=== PATIENT | female | born 1940 | race Caucasian/White ===

== ENCOUNTER → 2016-07-03 | Outpatient (CLI) | payer MEDICARE ==
[~2016-07-03] MED LIST: ASPIR-LOW81 MG PO; CIPRO 250MG TA250 MG PO; CRESTOR10 MG PO; FLAGYL250 MG PO; IMODIUM 2MG. CAP2 MG OR; LEVOTHYROXIN0.075 MG PO; LEVOTHYROXINE0.05 MG PO; LOVASTATIN20 MG PO; METFORMIN500 MG PO; METOPROLOL25 MG PO; PHENERGAN 12.12.5 M1 PO; TIMOPTIC 0.5% OP5 M1 OP; XALATAN 0.2.5 ML/BOT OP
--- NOTE | 2016-07-11 15:14 | RADIOLOGY REPORT PS360 ---
WRIST-3 VIEWS-RT HISTORY: Pain following injury CONTUSION RT WRIST COMPARISON: None FINDINGS: No fracture or dislocation. No lytic or blastic change. There is normal mineralization.. The joint spaces are well-preserved. No significant degenerative/arthritic changes. No erosive changes evident.. There is some minimal cortical regularity involving the scaphoid along the lateral aspect of the radioscaphoid joint seen only on the AP view. This is of questionable clinical significance. Otherwise negative. IMPRESSION: Probably no acute finding. Consider follow-up if pain persists regarding nonspecific cortical irregularity of the scaphoid
== END ==
LOC: RAD 14:57
DX: S60.211A Contusion of right wrist, initial encounter (principal)